=== PATIENT | female | born 1975 | race Caucasian/White ===

== ENCOUNTER 2019-10-05 17:25 | Emergency (ER) | payer MEDICARE, OTHER ==
[~2019-10-05] VITALS: Ht 154.9 cm; Wt 59.0 kg
[~2019-10-05 17:25] MED LIST: ANTIVERT25 MG PO; GRALISE1 EACH PO; VITAMIN D3400 UNIT PO; ZANAFLEX4 MG PO
[2019-10-05] MEDS ORDERED: ZARXIO300 MCG/0. IM (17:39)
[2019-10-05] MEDS ORDERED: ADVIL200 M3 PO (17:40)
[2019-10-05] MEDS ORDERED: EPIPEN0.3 MG/0.1 IM (17:40)
[2019-10-05] MEDS ORDERED: NORCO 5-325 TA1 EAC1 PO (19:09)
[2019-10-05 19:37] VITALS: BP 102/69
== END 2019-10-05 19:38 | disposition home or self-care (01) ==
LOC: M.ERS 17:25
DX: S63.591A Other specified sprain of right wrist, initial encounter (principal); S43.491A Other sprain of right shoulder joint, initial encounter; M54.5 Low back pain; Z88.0 Allergy status to penicillin; Z88.8 Allergy status to other drugs, medicaments and biological substances; W00.0XXA Fall on same level due to ice and snow, initial encounter; Y92.89 Other specified places as the place of occurrence of the external cause; Y93.01 Activity, walking, marching and hiking; Y99.8 Other external cause status

== ENCOUNTER 2019-12-05 10:19 | Emergency (ER) | payer MEDICARE, OTHER ==
[~2019-12-05] VITALS: Ht 154.9 cm; Wt 59.0 kg
[~2019-12-05 10:19] MED LIST changes: +ADVIL200 M3 PO; +EPIPEN0.3 MG/0.1 IM; +NORCO 5-325 TA1 EAC1 PO; +ZARXIO300 MCG/0. IM
[2019-12-05 11:29] LABS: ABSOLUTE EOSINOPHILS 0.1 thou/uL (0.0-0.7); ABSOLUTE LYMPHOCYTES 1.2 thou/uL (0.8-5.3); ABSOLUTE MONOCYTES 0.5 thou/uL (0.0-1.2); ABSOLUTE NEUTROPHILS 4.9 thou/uL (1.6-8.1); BASOPHILS 0.4 %; EOSINOPHILS 0.8 %; HEMATOCRIT 38.3 % (37.0-47.0); LYMPHOCYTES 17.2 %; MCH 30.4 pg (26.0-34.0); MCV 89.4 fL (80.0-100.0); MONOCYTES 8.1 %; MPV 8.9 fl. (7.2-11.1); NUCLEATED RBCS 0 /100WBC; PLATELET COUNT* 203 thou/uL (150-400); POLYS 73.5 %; RBC 4.29 mil/uL (4.20-5.00); RDW-CV 13.8 % (10.5-14.5); WBC 6.7 thou/uL (4.0-11.0)
[2019-12-05 11:34] LABS: CALCIUM 8.4 mg/dL (8.5-10.1); CREATININE 0.6 mg/dL (0.6-1.3); POTASSIUM 3.3 mmol/L (3.5-5.1)
[2019-12-05 11:40] LABS: ALBUMIN 3.3 g/dL (3.4-5.0); TOTAL BILIRUBIN 0.2 mg/dL (<0.1-1.0); TOTAL PROTEIN 6.8 g/dL (6.4-8.2)
[2019-12-05] MEDS ORDERED: PROMETHAZINE-D473 M1 PO (12:30)
[2019-12-05 12:40] VITALS: BP 120/75
== END 2019-12-05 12:41 | disposition home or self-care (01) ==
LOC: M.ERS 10:19
PROVIDERS: Physician Assistant
DX: J10.1 Influenza due to other identified influenza virus with other respiratory manifestations (principal); Z91.013 Allergy to seafood; Z91.018 Allergy to other foods; Z88.0 Allergy status to penicillin; Z88.8 Allergy status to other drugs, medicaments and biological substances

== ENCOUNTER 2020-06-07 16:57 | Inpatient (IN) | payer MEDICARE, OTHER ==
[~2020-06-07] VITALS: Ht 154.9 cm; Wt 63.5 kg
[~2020-06-07 16:57] MED LIST changes: +PROMETHAZINE-D473 M1 PO
[2020-06-07 17:00] VITALS: BP 113/74
[2020-06-07 17:22] LABS: ABSOLUTE EOSINOPHILS 0.2 thou/uL (0.0-0.7); ABSOLUTE LYMPHOCYTES 1.7 thou/uL (0.8-5.3); ABSOLUTE MONOCYTES 0.3 thou/uL (0.0-1.2); ABSOLUTE NEUTROPHILS 2.3 thou/uL (1.6-8.1); EOSINOPHILS 3.9 %; HEMATOCRIT 38.5 % (37.0-47.0); HEMOGLOBIN 13.1 gm/dL (12.0-15.0); LYMPHOCYTES 38.2 %; MCHC 34.1 g/dL (28.0-37.0); MCV 87.9 fL (80.0-100.0); MONOCYTES 7.4 %; MPV 10.2 fl. (7.2-11.1); NUCLEATED RBCS 0 /100WBC; PLATELET COUNT* 139 thou/uL (150-400); POLYS 49.5 %; RBC 4.38 mil/uL (4.20-5.00); RDW-CV 13.2 % (10.5-14.5); WBC 4.6 thou/uL (4.0-11.0)
[2020-06-07 17:33] LABS: CALCIUM 8.8 mg/dL (8.5-10.1); CREATININE 0.9 mg/dL (0.6-1.3)
[2020-06-07 17:44] LABS: ALBUMIN 3.8 g/dL (3.4-5.0); TOTAL BILIRUBIN 0.3 mg/dL (<0.1-1.0); TOTAL PROTEIN 6.8 g/dL (6.4-8.2)
[2020-06-07 18:37] LABS: APTT 25.9 Seconds (25.0-31.3); PROTIME 10.7 Seconds (9.20-11.50)
[2020-06-07 21:00] VITALS: BP 93/60
[2020-06-08] VITALS: BP 92/56
[2020-06-08 04:30] VITALS: BP 87/52
[2020-06-08 05:41] LABS: CHOLESTEROL 178 mg/dL (<200); HDL CHOLESTEROL 56 mg/dL (>40); LDL CHOLESTEROL 110 mg/dL (<100); TC:HDL 3.2 Ratio (Not establshd); TRIGLYCERIDE 63 mg/dL (<150); VLDL 13 mg/dL (<40)
[2020-06-08 05:44] LABS: SERUM ASSESSMENT Clear
[2020-06-08 08:00] VITALS: BP 91/59
--- NOTE | 2020-06-08 10:10 | EKG ---
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: CCD : 1975 Requested By: Fabio Song Order Number: [id number] MD: Surinder Rowland Measurements Intervals [place] Rate: 67 P: 140 FL: 135 QRS: 222 QRSD: 101 T: 142 QT: 388 QTc: 410 Interpretive Statements Right and left arm electrode reversal, interpretation assumes no reversal Sinus or ectopic atrial rhythm Low voltage with right axis deviation Abnrm T, consider ischemia, anterolateral lds Baseline wander in lead(s) II,aVF No previous ECG available for comparison Electronically Signed On 06-08-2020 10:10:09 CDT by Surinder Rowland [email or web address] <ELECTRONICALLY SIGNED> By: Surinder Rowland MD, [facility] 06/08/20 1010 01 01 Surinder Rowland MD, [facility] /EPI
[2020-06-08 13:05] VITALS: BP 101/59
--- NOTE | 2020-06-08 14:05 | 2DMMODE ---
[place] [address] 2 D/M-MODE ECHOCARDIOGRAM Name: MESSI CR Room: [address] IN [facility]#: [id number] Admission: 06/07/20 Attend Phys: Elliott Jones Discharge: Date of : 75 Date of Service: 06/08/20 1405 Report #: [id number] THIS REPORT FOR: cc: John Tuttle MD, Anthony MD Blick,Surinder Rivero MD [facility] ~ APPROVED REPORT Study performed: 06/08/2020 10:27:22 EXAM: Comprehensive 2D, Doppler, and color-flow Echocardiogram Patient Location: In-Patient Room #: [facility] Status: routine BSA: 1.62 HR: 59 bpm BP: 87/52 mmHg Rhythm: NSR Other Information Study Quality: Good Indications Chest Pain ? stroke migraine Echo Enhancing Agent Indication: Rule out Shunt Agent(s) / Amount(s) Used: Agitated Saline 10 cc 2D Dimensions IVSd: 8.46 (7-11mm) LVOT Diam: 20.20 (18-24mm) LVDd: 46.63 mm PWd: 7.32 (7-11mm) Ascending Ao: 32.94 (22-36mm) LVDs: 31.11 (25-40mm) Aortic Root: 28.80 mm Volumes Left Atrial Volume (Systole) LA ESV Index: 22.80 mL/m2 Aortic Valve AoV Peak August.: 1.48 m/[place] [address] 2 D/M-MODE ECHOCARDIOGRAM Name: MESSI CR Room: [address]#: [id number] Admission: 06/07/20 Attend Phys: Elliott Jones Discharge: Date of : 75 Date of Service: 06/08/20 1405 Report #: [id number] Peak Gr.: 8.75 mmHg LVOT Max P.71 mmHg AO Mean Gr.: 4.52 mmHg LVOT Mean P.33 mmHg LVOT Max V: 1.48 m/s AO V2 VTI: 32.85 cm LVOT Mean V: 0.95 m/s MASOUD (VTI): 3.14 cm2 LVOT V1 VTI: 32.24 cm Mitral Valve E/A Ratio: 1.28 MV Decel. Time: 209.27 ms MV E Max August.: 0.88 m/s MV PHT: 60.69 ms MVA (PHT): 3.63 cm2 TDI E/Lateral E': 5.18 E/Medial E': 6.29 Medial E' August.: 0.14 m/s Lateral E' August.: 0.17 m/s Pulmonary Valve PV Peak August.: 0.85 m/s PV Peak Gr.: 2.91 mmHg Tricuspid Valve RAP Estimate: 5.00 mmHg TR Peak Gr.: 20.01 mmHg RVSP: 25.00 mmHg PA Pressure: 25.00 mmHg Left Ventricle The left ventricle is normal size. There is normal LV segmental wall motion. There is normal left ventricular wall thickness. Left ventricular systolic function is normal. The left ventricular ejection fraction is within the normal range. LVEF is 55-60%. The left ventricular diastolic function is normal. Right Ventricle The right ventricle is normal size. The right ventricular systolic function is normal. Atria The left atrium size is normal. The interatrial septum is intact with no evidence for an atrial septal defect. The right atrium size is normal. Aortic Valve The aortic valve is normal in structure. No aortic regurgitation is present. There is no [place] [address] 2 D/M-MODE ECHOCARDIOGRAM Name: MESSI CR Room: [address]#: [id number] Admission: 06/07/20 Attend Phys: Elliott Jones Discharge: Date of : 75 Date of Service: 06/08/20 1405 Report #: [id number] Mitral Valve The mitral valve is normal in structure. Mild mitral regurgitation. No evidence of mitral valve stenosis. Tricuspid Valve The tricuspid valve is normal in structure. Mild tricuspid regurgitation. estimated pa pressure 30 mm Hg Pulmonic Valve The pulmonary valve is normal in structure. There is no pulmonic valvular regurgitation. Great Vessels The aortic root is normal in size. IVC is normal in size and collapses >50% with inspiration. Pericardium There is no pericardial effusion. <Conclusion> LVEF is 55-60%. The interatrial septum is intact with no evidence for an atrial septal defect. Mild mitral regurgitation. <ELECTRONICALLY SIGNED> By: Surinder Rowland MD, [facility] 06/08/20 1405 1405 1405 Surinder Rowland MD, FACC /INF
[2020-06-08 16:02] VITALS: BP 90/49
[2020-06-08 20:00] VITALS: BP 89/60
[2020-06-09 00:21] VITALS: BP 88/50
[2020-06-09 02:06] LABS: GLYCOHEMOGLOBIN (HGB A1C) 5.2 % (4.8-5.6)
[2020-06-09 04:43] VITALS: BP 82/48
[2020-06-09] MEDS ORDERED: ATORVASTATIN CA20 MG PO (07:20)
[2020-06-09] MEDS ORDERED: ASA81BEC PO (07:20)
[2020-06-09 08:00] VITALS: BP 92/57
--- NOTE | 2020-06-09 08:24 | CON ---
[address] [address] CONSULTATION Name: MESSI CR Room: [address] IN ..#: [id number] Admission: 06/07/20 Attend Phys: Kelly Webster Discharge: Date of : 75 Report #: [id number] THIS REPORT FOR: //name// cc: John Tuttle MD, Anthony MD ~ THIS REPORT FOR: //name// CC: John Jones DATE OF SERVICE: 06/08/2020 CARDIOLOGY CONSULTATION HISTORY OF PRESENT ILLNESS: The patient is a 44-year-old white female who I was asked to see in the hospital today after she complained of chest pain. The patient does note that years ago, she was diagnosed with mitral valve prolapse and was on a beta radha for a period of time. She apparently wore a monitor at that time. Recently, she was coughing and diagnosed with pneumonia. She recently finished a course of antibiotics. Recently, she has felt drowsy. For the past week, she has had an intermittent pain in her chest. It is a dull ache. It is worse when she lies down. She has had to sleep sitting in a chair. She denied radiating to her jaw. There is no associated nausea, diaphoresis. She has been short of breath lately, but denied any edema. She notes occasional irregular heartbeat, but no syncope. PAST MEDICAL HISTORY: She has had tarsal tunnel surgery, back surgery. She has had occipital release in the past for headaches. She has chronic back pain and had a nerve stimulator in the past. No history of hypertension, diabetes, hyperlipidemia. MEDICATIONS: Her only medications include long-acting Neurontin. ALLERGIES: SHE HAS ALLERGY TO PENICILLIN. FAMILY HISTORY: Father, heart disease. SOCIAL HISTORY: She is . She and her live in [place]. 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 No smoking. Rarely drinks alcohol. REVIEW OF SYSTEMS: She has had no history of stroke or asthma. She had a peptic ulcer in the past. No liver disease. She has a kidney stone. No cancer. No psychiatric illness[place] [id number] CONSULTATION Name: MESSI CR Room: [address]#: [id number] Admission: 06/07/20 Attend Phys: Kelly Webster Discharge: Date of : 75 Report #: [id number] PHYSICAL EXAMINATION: GENERAL: Revealed a middle-aged female lying in bed. She appeared in no distress. VITAL SIGNS: She had a blood pressure of 100/60, pulse 60. She is afebrile. HEENT: She was anicteric. Conjunctivae pink. Mucous membranes moist. NECK: Veins are nondistended. CHEST: Clear to auscultation. CARDIOVASCULAR: Regular rate and rhythm, no murmur or rub. ABDOMEN: Soft. EXTREMITIES: Had no edema. Dorsalis pedis pulse 2+ bilaterally. SKIN: Warm and dry. NEUROLOGIC: Nonfocal. RADIOLOGICAL DATA: ECG showed a sinus rhythm. The 12-lead ECG is not in her chart at this time. Her workup in the Emergency Room last night, she had a CT scan of the head that showed no acute abnormality. Chest x-ray showed normal heart size, clear lung quiles. LABORATORY DATA: Sodium 139, creatinine 0.9. Liver function studies were normal. White blood cell count 4.6, hemoglobin 13.1. Report of an ECG showed abnormal T-wave changes. She had an echocardiogram performed in the hospital today that showed ejection fraction 60%. No evidence of shunt, mild mitral regurgitation. IMPRESSION AND RECOMMENDATIONS: 1. Chest pain. Atypical for angina. Suspect noncardiac. Recommend no further cardiac evaluation. 2. Recent pneumonia. 3. Chronic back pain. 4. Drowsiness. <ELECTRONICALLY SIGNED> By: Surinder Rowland MD, FACC 06/09/20 0824 1544 [id number] Rowland MD, FACC /nt
[2020-06-09 11:11] VITALS: BP 92/57
--- NOTE | 2020-06-09 18:46 | CON ---
[facility] [address] [place] [address] CONSULTATION Name: MESSI CR Room: [address] IN M.R.#: [id number] Admission: 06/07/20 Attend Phys: Kelly Webster Discharge: 06/09/20 Date of : 75 Report #: [id number] THIS REPORT FOR: //name// cc: John Tuttle MD, Anthony MD ~ THIS REPORT FOR: //name// CC: John Jones DATE OF SERVICE: 06/08/2020 HISTORY OF PRESENT ILLNESS: This is a 44-year-old female patient who was seen by me yesterday in the Emergency Room. I had talked to Dr. Liu and then came to Emergency Room and actually saw the patient. I also saw her today and this is a combined note. This patient indicates that she has a longstanding history of migraine. She has not had any prior hemiplegic symptoms. She came to Emergency Room that she was weak on the left side. It involved her face, left upper extremity and left lower extremity. She also had numbness. Consideration was given for tPA, but ultimately the patient decided that she did not want tPA and symptoms were not very typical. The patient has improved. She feels back to her baseline or close to it. REVIEW OF SYSTEMS: Positive for the fact that she has a history of migraine. She said she tried multiple medications and they were not beneficial. She underwent an occipital neurectomy and that relieved her migraine headache. She also complained of some chest pain, which has become better. She also has a history of tarsal tunnel syndrome and some question of reflex sympathetic dystrophy. This was her relevant 14-point review of system and she also has some disease of the polymorph. PAST MEDICAL HISTORY: Positive for migraine, but atypical history is that it was relieved by occipital neurectomy. FAMILY HISTORY: Noncontributory. SOCIAL HISTORY: She does not smoke. PHYSICAL EXAMINATION: NEUROLOGIC: Indicates she is alert. She is responsive. She is able to follow simple commands. Her speech, concentration looks unremarkable. Cranial nerve examination 2-12 looks unremarkable. She was weak in the left side, but today her strength, sensation, reflexes and tone is symmetrical. She can do rapid finger tapping and alternate finger tapping. Her reflexes are symmetrical. Her position sense is intact. I could not look at the patient's fundus. [place] [address] CONSULTATION Name: MESSI CR Room: [address]#: [id number] Admission: 06/07/20 Attend Phys: Kelly Webster Discharge: 06/09/20 Date of : 75 Report #: [id number] VITAL SIGNS: Her blood pressure is 101/59, respirations 16, pulse is 57, temperature is 97.6. LABORATORY DATA: White count is normal. Sodium is 139. test was negative. She had a CT angio of the head and neck in the Emergency Room and she also had a CT perfusion. They were normal. MRI of the brain is also normal. Echocardiogram shows no abnormality and no patent foramen ovale. IMPRESSION: Difficult to tell in this patient. 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 Her LDL is high. That needs to be treated. She says sometimes her memory is not good, so I will go ahead and order a TSH. Her sed rate is normal. If she does not plan to have any , then she can be on a baby aspirin and her cholesterol can be treated. Otherwise, I do not have any specific thing to add. We will sign off. Please call if there is any question or followup is needed. More than 50 minutes of time was spent taking care of this patient today and majority was spent counseling and coordinating. Thank you very much for this referral. <ELECTRONICALLY SIGNED> By: Terrence Aguilar MD 06/09/20 1846 1435 [id number] Aguilar MD /nt
== END 2020-06-09 11:30 | disposition home or self-care (01) | DRG 206 ==
LOC: M.ERS 16:57 → M.2W 18:35 → M.TBA-ER 18:35 → M.2W 21:21
PROVIDERS: Emergency Medicine Emergency Medical Services; ADMIT Internal Medicine; ATTEND Internal Medicine
DX: M94.0 Chondrocostal junction syndrome [Tietze] (principal); G43.409 Hemiplegic migraine, not intractable, without status migrainosus; I20.9 Angina pectoris, unspecified; G89.29 Other chronic pain; M54.9 Dorsalgia, unspecified; D70.4 Cyclic neutropenia; Z20.828 Contact with and (suspected) exposure to other viral communicable diseases; Z91.012 Allergy to eggs; Z88.0 Allergy status to penicillin; Z91.013 Allergy to seafood; Z91.018 Allergy to other foods; Z91.09 Other allergy status, other than to drugs and biological substances

== ENCOUNTER 2021-01-04 19:22 | Emergency (ER) | payer MEDICARE, OTHER ==
[~2021-01-04] VITALS: Ht 152.4 cm; Wt 63.5 kg
[~2021-01-04 19:22] MED LIST changes: +ASA81BEC PO; +ATORVASTATIN CA20 MG PO
[2021-01-04 19:37] LABS: ABSOLUTE BASOPHILS 0.2 thou/uL (0.0-0.2); ABSOLUTE EOSINOPHILS 0.2 thou/uL (0.0-0.7); ABSOLUTE LYMPHOCYTES 2.7 thou/uL (0.8-5.3); ABSOLUTE MONOCYTES 0.5 thou/uL (0.0-1.2); ABSOLUTE NEUTROPHILS 11.6 thou/uL (1.6-8.1); EOSINOPHILS 1.5 %; HEMATOCRIT 41.3 % (37.0-47.0); HEMOGLOBIN 13.8 gm/dL (12.0-15.0); MCH 30.4 pg (26.0-34.0); MCHC 33.3 g/dL (28.0-37.0); MCV 91.2 fL (80.0-100.0); MONOCYTES 3.1 %; MPV 9.8 fl. (7.2-11.1); NUCLEATED RBCS 0 /100WBC; PLATELET COUNT* 180 thou/uL (150-400); POLYS 76.4 %; RBC 4.53 mil/uL (4.20-5.00); RDW-CV 14.4 % (10.5-14.5); WBC 15.2 thou/uL (4.0-11.0)
[2021-01-04 19:45] LABS: CALCIUM 8.5 mg/dL (8.5-10.1); CREATININE 0.6 mg/dL (0.6-1.3); POTASSIUM 3.2 mmol/L (3.5-5.1)
[2021-01-04 19:50] LABS: ALBUMIN 3.9 g/dL (3.4-5.0); TOTAL BILIRUBIN 0.3 mg/dL (<0.1-1.0); TOTAL PROTEIN 7.2 g/dL (6.4-8.2)
[2021-01-04] MEDS ORDERED: PREDNISONE50 MG PO (21:02)
[2021-01-04] MEDS ORDERED: EPIPEN 2-P0.3 MG/0.3 IM ×2 (21:02)
[2021-01-04 21:13] VITALS: BP 98/61
--- NOTE | 2021-01-05 12:16 | EKG ---
[place] [address] ELECTROCARDIOGRAM REPORT Name: MESSI CR Room: [facility]#: [id number] Admission: 01/04/21 Attend Phys: Discharge: 01/04/21 Date of : 75 Date of Service: 01/04/211931 Report #: [id number] THIS REPORT FOR: //name// 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 : 1975 Requested By: Joyce Walker Order Number: [id number] MD: Jairo Hodge Measurements Intervals [place] Rate: 87 P: 44 VT: 138 QRS: -45 QRSD: 98 T: 7 QT: 355 QTc: 427 Interpretive Statements Sinus rhythm Left anterior fascicular block Possible lateral infarct, old Compared to ECG 06/07/2020 17:02:07 Left anterior fascicular block now present Myocardial infarct finding now present Ectopic atrial rhythm no longer present Right-axis deviation no longer present Possible ischemia no longer present Electronically Signed On 01-05-2021 12:16:12 CDT by Jairo Hodge [email or web address] <ELECTRONICALLY SIGNED> By: Jairo Hodge MD, [facility] 01/05/21 1216 31 31 Jairo Hodge MD, [facility] /EPI
== END 2021-01-04 21:13 | disposition home or self-care (01) ==
LOC: M.ERS 19:22
PROVIDERS: Emergency Medicine
DX: R05 Cough (principal); T78.49XA Other allergy, initial encounter; Z88.8 Allergy status to other drugs, medicaments and biological substances; Z91.012 Allergy to eggs; Z91.040 Latex allergy status; Z91.013 Allergy to seafood; Z91.018 Allergy to other foods; Z87.01 Personal history of pneumonia (recurrent); Z88.0 Allergy status to penicillin; X58.XXXA Exposure to other specified factors, initial encounter